=== PATIENT | male | born 1970 | race Caucasian/White ===

== ENCOUNTER 2017-10-11 14:11 | Emergency (ER) | payer OTHER ==
--- NOTE | 2017-10-11 14:43 | RAD ---
RIGHT ANKLE THREE VIEWS: History: Ankle pain. FINDINGS: Minimal soft tissue swelling. Mild degenerative change at the tibiotalar joint with mild spurring. No fracture identified. IMPRESSION: Mild degenerative change at the ankle without evidence of acute fracture. POS: [facility]
[2017-10-11 15:03] LABS: Band 14 % (5-11); Eosinophils 2 % (0-10); Hemoglobin 14.2 g/dL (14.0-18.0); Lymphocytes 14 % (21-51); MDiff Complete? YES; Mean Corpuscular HGB CONC 34.5 g/dL (32.0-36.0); Mean Corpuscular Hemoglobin 32.3 pg (27.0-31.0); Mean Corpuscular Volume 93.7 fl (80.0-94.0); Mean Platelet Volume 8.2 fL (7.4-10.4); Monocytes 15 % (0-10); Neutrophil 53 % (42-75); PLT Morphology Comment Appears Adequate; Platelet Count 161 thou/uL (130-400); RBC Distribution Width 11.7 % (11.5-14.5); Reactive Lymphocytes 1 % (0-10); Red Blood Cell (RBC) Count 4.38 mill/uL (4.70-6.10)
[2017-10-11 15:04] LABS: Anion Gap 15 mmol/L (10-20); BUN (Urea Nitrogen) 8 mg/dL (8.9-20.6); Calc. Creatinine Clearance 0 mL/min (70-130); Calcium 9.4 mg/dL (7.8-10.44); Carbon Dioxide 22 mmol/L (22-29); Chloride 99 mmol/L (98-107); Estimated GFR-MDRD Greater than 90; Glucose 75 mg/dL (70-105); Potassium 4.2 mmol/L (3.5-5.1); Sodium 132 mmol/L (136-145)
[2017-10-11] MEDS ORDERED: Ibuprofen 800 MG TAB ONE (15:25)
[2017-10-11] MEDS ORDERED: Colchicine 0.6 MG TAB ONE (15:25)
== END 2017-10-11 16:00 | disposition home or self-care (01) ==
LOC: SCSER 14:11
DX: M25.571 Pain in right ankle and joints of right foot (principal); I10 Essential (primary) hypertension; F17.210 Nicotine dependence, cigarettes, uncomplicated
CPT/HCPCS: 80048; 83605; 84550; 85025; 85652; 86140; 87040